=== PATIENT | male | born 1945 | race Caucasian/White ===

== ENCOUNTER → 2016-08-17 | Day surgery (SDC) | payer MEDICARE, OTHER ==
[~2016-08-17] MED LIST: GENTAMICIN SULFATE 80 MG/2 ML VIAL ONE; LACTATED RINGER'S 1000 ML INJ 1,000 ML ONE; MIDAZOLAM HCL 2 MG/2 ML VIAL ONE; ONDANSETRON HCL 4 MG/2 ML VIAL IV PUSH ONE; PROPOFOL 200 MG/20 ML AMP IV ONE; STERILE WATER FOR INJ 20 ML VIAL ONE
--- NOTE | 2016-08-17 11:49 | TN ---
cc: JACKELYN THOMAS M.D. DATE OF SURGERY 08/17/2016 PREOPERATIVE DIAGNOSES 1. Bladder tumors (ICD-10 code of D41.4). 2. Personal history of bladder cancer (ICD-10 code Z85.51). PROCEDURE Transurethral resection of bladder tumor (TURBT) (CPT code 41985). INDICATION Mr. 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 He recently underwent surveillance local cystoscopy since he was in the area and was found to have some suspicious lesions, presents now for resection of these. FINDINGS The patient has a penile prosthesis. The urethra was somewhat narrowed but no nancy strictures. 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 The bladder neck is elevated and hypertrophic. The bladder itself shows ureteral orifice normal size, shape and position effluxing clear urine. There is a small sessile tumor in the upper left lateral wall just proximal to the trigone. On the right lateral wall there are two separate sessile lesions; these are both relatively small but the larger of the two does have some adjacent tissue that looks somewhat dysplastic. No additional tumors were identified. No calcifications or diverticula. There is some mild trabeculation. No other abnormalities identified. PROCEDURE The procedure as well as risks and benefits were explained to the patient and informed consent was obtained. The patient was taken to the major operative theater where he was placed in a supine position. The patient was identified as well as the operative site. A universal time-out was performed in standard fashion. At this time general anesthetic and prophylactic intravenous antibiotics consisting of gentamicin was administered. After adequate anesthetic he was placed in low dorsal lithotomy position, prepped and draped in the usual sterile fashion. At this time a 22.5 Chinese cystoscope with a 30-degree lens was inserted into the urethra and bladder with the above findings. It was somewhat difficult to enter into the bladder due to his prosthesis but we will were able to enter into the bladder without too much difficulty. The 30-degree lens was exchanged for the 70-degree lens. The entire bladder was systematically surveyed with the above findings and photo documentation was obtained pre and postprocedure. At this time using a 30-degree lens and a rigid biopsy forceps, the aforementioned tumors were resected separately and sent for final pathological evaluation. A [employer]Style[employer] probe was used to fulgurate the biopsy site as well as some normal tissue surrounding. Special attention was paid to the to the larger of the two since there was some suspicious dysplastic tissue in close proximity and that tissue was sent along with that tumor and the area was fulgurated to an area which did not appear to be grossly abnormal. At this time, after confirming hemostasis, the bladder was decompressed, the cystoscope removed. The patient tolerated the procedure well, emerged from anesthetic without difficulty and was transferred to the recovery room in stable condition, to be discharged home when criteria is met. There were no obvious complications. MD NIURKA Mcadams/LEONORA /11:26 AM /11:41 AM
== END | disposition home or self-care (01) ==
LOC: ESDC 08:32
PROVIDERS: ATTEND Urology
DX: D41.4 Neoplasm of uncertain behavior of bladder (principal); Z85.51 Personal history of malignant neoplasm of bladder
CPT/HCPCS: 00912; 52234; 88305; J1580; J2250; J2405; J3010; J7120; 88307